=== PATIENT | female | born 1955 | race Two or more races ===

== ENCOUNTER 2024-09-23 18:19 | Emergency (ER) | payer MEDICARE, MEDICAID, SELFPAY ==
[2024-09-23 19:16] VITALS: BP 156/73; PULSE 77; RESP 18; TEMP 36.6; O2SAT 95; BMI 30.9
--- NOTE | 2024-09-23 19:48 | XR_ITS ---
Examination: Ribs, left, with PA chest, 5 views Technique: Chest PA, RIBS AP, RPO, LPO, AP coned lower ribs 5 views Exam date and time: September 23, 2024 1935 hrs. Indications: Patient fell today with injury to the left chest, left rib pain Findings: No pneumothorax Mild atelectasis in the lower lung zones No acute rib fractures Impression: No pneumothorax or hemothorax No acute rib fractures
--- NOTE | 2024-09-23 20:14 | EDNOTE_ITS ---
ED Chest Pain RME/HPI General Chief Complaint: General Adult/Misc Complain Stated Complaint: LEFT RIB PAIN POST FALL X YESTERDAY W/ SOB; NORCO5 Time Seen by Provider: 09/23/24 19:48 Arrival date/time: 09/23/24 18:19 69F with history of DM presents to ED with L lower rib pain after trip and fall yesterday. There is some SOB when taking a deep breath. Patient denies hitting head, neck, N/V, dizziness, weakness, blurry vision, AMS, and LOC. Limitations: no limitations Related Data Home Medications ?Medication ?Instructions ?Recorded ?Confirmed metformin 500 mg tablet 1 tab PO QDAY #0 tabs 04/20/ 10/13/17 (Glucophage) Previous Rx's ?Medication ?Instructions ?Recorded Hydrocodone Bit/Acetaminophen 1 tab PO Q6HR PRN ABDOMI NAL PAIN 05/01/17 (Carpenter 10-325 Tablet) #30 tabs acetaminophen 650 mg 650 mg PO Q12H PRN pain #30 tabs 01/21/19 tablet,extended release (Tylenol Arthritis Pain) cyclobenzaprine 5 mg tablet 5 mg PO HS PRN muscle spas m #10 01/21/19 tabs Allergies Allergy/AdvReac Type Severity Reaction Status Date / Time naproxen Allergy Severe UNKNOWN Verified 09/23/24 18:22 ibuprofen Allergy Mild GI UPSET Verified 09/23/24 18:22 Review of Systems Review of Systems Systems Reviewed: All systems reviewed, normal except as documented Constitutional Constitutional: Reports system reviewed and no additional complaints, except as documented, Denies fever(s) and Denies headache(s) ENT Ears, Nose, Mouth, and Throat: Denies disequilibrium and Denies headache(s) Cardiovascular Cardiovascular: Reports system reviewed and no additional complaints, except as documented, Reports as per HPI, Reports chest pain (L rib pain) and Denies dyspnea Respiratory Respiratory: Reports system reviewed and no additional complaints, except as documented, Denies as per HPI, Denies cough and Denies dyspnea Gastrointestinal Gastrointestinal: Reports system reviewed and no additional complaints, except as documented, Denies abdominal pain, Denies nausea and Denies vomiting Neurologic Neurologic: Reports system reviewed and no additional complaints, except as documented, Denies confusion, Denies disequilibrium and Denies headache(s) Psychiatric Psychiatric: Denies confusion Past Medical History Past Medical History CARDIAC: Negative Congestive Heart Failure RESPIRATORY: Negative Chronic Obstructive Pulmonary Disease (COPD) GENITOURINARY: Negative Renal Disease MUSCULOSKELETAL: Positive Degenerative Joint Disease ENDOCRINE: Positive Diabetes Mellitus Type 2; Negative Diabetes Mellitus Type 1 Social History SMOKING STATUS: Never smoker ED Exam General Limitations: Present no limitations General appearance: Present alert and in no apparent distress Head Head exam: Present atraumatic Eye Eye exam: Present normal appearance, PERRL and EOMI ENT ENT exam: Present normal exam, normal oropharynx and mucous membranes moist Neck Neck exam: Present normal inspection, full ROM and trachea midline Chest Chest inspection: Present symmetric chest wall rise and tenderness (L lower rib) Respiratory Respiratory exam: Present normal lung sounds bilaterally Cardiovascular Cardiovascular exam: Present regular rate, normal rhythm and normal heart sounds Abdominal Exam Abdominal exam: Present soft and normal bowel sounds Extremities Exam Extremities exam: Present normal inspection and full ROM Back Exam Back exam: Present normal inspection and full ROM Neurological Exam Neurological exam: Present alert, oriented X3 and CN II-XII intact Psychiatric Psychiatric exam: Present normal affect and normal mood Skin Skin exam: Present warm, dry, intact and normal color Course Quality Measures none Orders Category Date Time Status CT cervical spine wo con Stat Exams 09/23/24 20:[address] chest wo con Stat Exams 09/23/24 20:[address] head/brain wo con Stat Exams 09/23/24 20:43 Completed XR ribs LT min 3V w CXR1V Stat Exams 09/23/24 19:48 Completed Vital Signs Vital signs: Vital Signs Temperature 97.8 F 09/23/24 19:16 Pulse Rate 77 09/23/24 19:16 Respiratory Rate 18 09/23/24 19:16 Blood Pressure 156/73 H 09/23/24 19:16 Pulse Oximetry (%) 95 09/23/24 19:16 Oxygen Delivery Method Room Air 09/23/24 19:16 O2 at 95% on RA and WNLs Chest Pain MDM Narrative MDM Narrative:: 69F with history of DM presents to ED with L lower rib pain after trip and fall yesterday. There is some SOB when taking a deep breath. Patient denies hitting head, neck, N/V, dizziness, weakness, blurry vision, AMS, and LOC. Physical exam reveals L lower rib tenderness, but clear lungs. Normal pupil response and EOM. No gross head trauma. ENT clear. No neck tenderness. ROM intact. Gait normal. Patient is afebrile, calm, and alert. XR and CT no acute abnormalities. LIkelyl contusion. Patient data External records reviewed:: [facility] previous records Clinical information provided by:: patient Social determinants that could affect healthcare access:: none Patient has the following chronic illnesses:: DM How is presenting disease/condition affected by chronic disease/condition?: uneffected by Evaluation data The following diagnostics were reviewed and interpreted by me:: radiology exam(s) Lab and/or radiology exams considered but not ordered:: ordered Interpretation Summary: above Medications / Prescriptions Medications or Prescriptions considered but not ordered:: not ordered Medication administrations:: n/a Consultations Consultation(s) initiated? (list below): No Diagnosis Chest Pain Differential Diagnosis: fracture of rib, pneumothorax, stable angina, unstable angina pectoris, atypical chest pain, st elevation myocardial infarction, costochondritis, chest pain, biliary colic and other (rib contusion) Most likely diagnosis given after review of the tests above:: rib contusion Admission Indicated Admission indicated?: not indicated Admission Request Was there a request for admission?: No Disposition Plan Disposition Plan: Discharge Discharge Attestation Discharge Attestation: The patient and all family members were given an opportunity to ask questions and understood the discharge instructions. Discharge instructions specifically effects, indications for sooner follow up or return to the emergency department, and the expected course of current diagnosis. Patient condition: Stable Discharge Plan Plan Patient Disposition: HOME (Self Care) Disposition Comment: STable Prescriptions/Referrals Prescriptions/Med Rec: No Action metformin [Glucophage] 500 MG tablet 1 tab PO QDAY Qty: 0 Hydrocodone Bit/Acetaminophen (Carpenter 10-325 Tablet) 1 TAB tablet 1 tab PO Q6HR PRN (Reason: ABDOMINAL PAIN) Qty: 30 0RF cyclobenzaprine 5 mg tablet 5 mg PO HS PRN (Reason: muscle spasm) Qty: 10 0RF acetaminophen [Tylenol Arthritis Pain] 650 mg tablet extended release 650 mg PO Q12H PRN (Reason: pain) Qty: 30 0RF Referrals: No Primary/Family,Physician [Primary Care Provider] - In 1 week Problem List Clinical Impression: Contusion of rib Patient/Caregiver Discharge Instructions Education Materials: ED Contusion, Rib Additional Instructions: Please follow-up with PCP within 24-48 hours and return immediately if symptoms worsen. Print Language: Maori Stand Alone Forms: Patient Portal Info Letter PA/FULL TIME STAFF INTERPRETER Supervising Physician PA/FULL TIME STAFF INTERPRETER Supervising Physician: Dr. Portillo
--- NOTE | 2024-09-23 20:43 | XR_ITS ---
Examination: CT cervical spine without contrast 2-D sagittal reconstructions 2-D coronal reconstructions 3-D reconstructions. Exam date and time:September 23, 20240 hrs. Indications: Patient fell today with injury to the neck, neck pain CTDI:vol (mGy) 8.33 DLP: (mGycm) 166 Technique: Multiple 2 mm axial sections of the cervical spine have been obtained. The coronal and sagittal reconstructions have been obtained. 3-D reconstructions have been obtained. Low dose protocols were performed. One or more of the following dose reduction techniques were used; automated exposure control, adjustment of the mA and/or KV according to patient size, use of iterative reconstruction technique. Findings: Axial sections demonstrate intact base of the skull. C1 exhibit satisfactory relationship to the odontoid. No acute cervical vertebral body fracture seen. Alignment posterior spinous processes satisfactory. Impression: No acute cervical fracture.
--- NOTE | 2024-09-23 20:43 | XR_ITS ---
Examination: CT chest, without intravenous contrast. Sagittal and coronal 2-D reconstructions. Exam date and time: September 23, 20245 hrs. Indications: Patient fell today with into the chest, chest pain CTDI:vol (mGy) 13.4 DLP: (mGycm) 1214 Technique: Multiple 3.0 mm axial sections of the chest to been obtained. Bone and lung density settings are obtained. Sagittal and coronal 2-D reconstructions have been obtained. Low dose protocols were performed. One or more of the following dose reduction techniques were used; automated exposure control, adjustment of the mA and/or KV according to patient size, use of iterative reconstruction technique. Findings: Lack of intravenous contrast limits assessment for chest trauma Thoracic aorta pulmonary arteries appear intact No hemopericardium No pneumothorax pulmonary contusion or hemothorax The manubrium the body the sternum intact No thoracic vertebral body compression fractures Ribs appear intact No visualized liver splenic or renal laceration Abdominal aorta is intact Free blood in the abdomen is not visualized Impression: Thoracic aorta pulmonary arteries appear intact No hemopericardium, pneumothorax, pulmonary contusion or hemothorax Osseous structures appear intact
--- NOTE | 2024-09-23 20:43 | XR_ITS ---
Examination: CT brain head without contrast. 2-D sagittal coronal reconstructions Date and time of exam:September 23, 2024 2050 hrs. Indications: Patient fell today with injury to the head, head pain CTDI: vol (mGy):46.8 DLP: (mGycm):925 Technique: Multiple CT axial sections of the brain have been obtained, 5 mm slice thickness. Contrast has not been administered. 2-D sagittal, coronal reconstructions have been obtained Low dose protocols were performed. One or more of the following dose reduction techniques were used; automated exposure control, adjustment of the mA and/or KV according to patient size, use of iterative reconstruction technique. Findings: No significant ventricular enlargement. Small right basal ganglia calcification Intra-axial or extra-axial hemorrhage density is not seen. No mass effect or midline shift Basal cisterns are not remarkable. Fourth ventricle is midline. Cranial vault intact. Impression: Negative for acute hemorrhage, mass effect or midline shift
[2024-09-23 22:30] VITALS: BP 142/80; PULSE 76; RESP 18; TEMP 36.8; O2SAT 98
== END 2024-09-23 22:33 | disposition home or self-care (01) ==
PROVIDERS: Emergency Provider Emergency Medicine
DX: S20.219A Contusion of unspecified front wall of thorax, initial encounter (principal); W01.0XXA Fall on same level from slipping, tripping and stumbling without subsequent striking against object, initial encounter; E11.9 Type 2 diabetes mellitus without complications; R06.02 Shortness of breath; R51.9 Headache, unspecified; M54.2 Cervicalgia
CPT/HCPCS: 70450; 71101; 71250; 72125; 99284